=== PATIENT | female | born 1950 | race Hispanic/Latino ===

== ENCOUNTER 2021-06-22 17:32 | Emergency (ER) | payer OTHER ==
--- OUTSIDE RECORDS SUMMARY | 2021-06-22 17:37 | XMS REPORT | Continuity of Care Document ---
:1950 Author Organization Formerly [facility] t Address [address] [place] [address] Care Team Providers Name Role Phone [phone] Primary Care Physician Unavailable SYSTEM, NOT IN Attending Clinician Unavailable Patti GARRIDO Attending Clinician Unavailable Margarita BARRERAP, F Attending Clinician TORITO Attending Clinician Unavailable Nurse, Db Attending Clinician Unavailable Torito KNOX Attending Clinician José Miguel Haddad Attending Clinician Unavailable Saige Archer MD Attending Clinician Saige ARCHER Attending Clinician Unavailable Provider, Urgent Care Attending Clinician Unavailable Dayne Charlton Attending Clinician Unavailable José Miguel Haddad Admitting Clinician Unavailable Manan Maloney Admitting Clinician Unavailable Payers Payer Name Policy Type Policy Number Effective Date Expiration Date Manan glasgow MEDICARE PART A \\T\\ [id number] 2017 B 00:00:00 [facility] [id number] 2017 [employer] 00:00:00 Problems Condition Condition Condition Status Onset Resolution Last Treating Co mments Source Name Details Category Date Date Treatment Clinician Date Cyst of Cyst of Disease Active 2020-02 right right 0-25 [place] ovary ovary 00:00: n 00 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 2-03 An derso 00:00: n 00 Fatigue Fatigue Disease Active 2018-02 MD 0-07 [place] 00:00: n 00 SOB SOB Disease Active 2018- Univers (shortness (shortness 4-25 it y of of breath[place] breath[place] [facility] Atypical Atypical Disease Active Unive rs chest pain chest pain 4-25 it y of 00:00: [place] 00 Medical Branch Bradycardi Bradycardi Disease Active U nivers a, sinus a, sinus 4-25 ity of 00:00: [place] 00 Medical Branch Influenzal Influenzal Disease Active 2018- U nivers acute acute 4-24 ity of upper upper 00:00: [place] respirator respirator 00 Me dical y y Branch infection infection Acute Acute Disease Active 2018- exacerbati exacerbati 4-24 An derso on of on of 00:00: n chronic chronic 00 congestive congestive heart heart failure failure Essential Essential Disease Active hypertensi hypertensi 4-20 An derso on on 00:00: n 00 History of History of Disease Active M D aortic aortic 4-20 [facility] valve valve 00:00: n replacemen replacemen 00 t t Bradycardi Bradycardi Disease Active M D a a 4-10 Anderso 00:00: n 00 Well woman Well woman Disease Active 2017- U nivers exam with exam with 9-20 ity of routine routine 00:00: [place] gynecologi gynecologi 00 Me dical ashley exam ashley exam Branch History of History of Disease Active M D malignant malignant 9-20 Jesus rso neoplasm neoplasm 00:00: n of breast of breast 00 Morbid Morbid Disease Active obesity obesity 10-26 Anderso 00:00: n 00 Prediabete Prediabete Disease Active U nivers s s 10-28 ity of 00:00: [place] 00 Medical Branch Leukopenia Leukopenia Disease Active U nivers , , 10-28 ity of unspecifie unspecifie 00:[place] type d type 00 Medical Branch Total knee Total knee Disease Active U nivers replacemen replacemen 6-13 it y of t status t status 00:00: [place] 00 Medical Branch Knee pain, Knee pain, Disease Active U nivers left left 3-23 ity of 00:00: [place] 00 Medical Branch Pain of Pain of Disease Active knee knee 2-10 Anderso region region 00:00: n 00 Malignant Malignant Disease Active Uni vers neoplasm neoplasm 07 ity of of right of right 00:00: [place] female female 00 Medical breast breast Branch Insomnia Insomnia Disease Active Unive rs 02-12 ity of 00:00: [place] 00 Medical Branch Anxiety Anxiety Disease Active 1-07 Anderso 00:00: n 00 Allergies, Adverse Reactions, Alerts Allergy Allergy Status Severity Reaction(s) Onset Inactive Treating Comm ents Source Name Type Date Date Clinician iodine DA Active [facility] 10[facility] 00:[facility]: [address] [facility] iodine DA Active [facility] IV [facility] 10-27 [facility] [place] Iodine Propensi Active Swelling IV Iodine Uni vers ty to 10-26 onlySwell ity of adverse 00:00: ing [facility] [place] reaction 00 face and Medica l s to potential Branch drug throat IODINE DRUG Active High Rash Univers INGREDI 10-26 ity of 00:00: [place] 00 Medical Branch Family History Family Member Diagnosis Comments Start Date Stop Date Source Natural brother Kidney cancer And giovanny Natural brother Throat cancer And giovanny Maternal aunt Breast cancer David son Maternal aunt Stomach cancer MD Jesus heredia Social History Social Habit Start Date Stop Date Quantity Comments Source History YVONNEOR [facility] [place] Alcohol Frequency History [facility] [place] Alcohol Std Drinks History [facility] [place] Alcohol Binge Exposure to 2021-06-07 2021-06-17 Not sure University of SARS-CoV-2 00:00:00 07:54:00 [place] Medical (event) Branch Tobacco use and 2020-11-30 2020-11-30 Smokeless tobacco MD [place] exposure 00:00:00 00:00:00 non-user Alcohol intake 2020-11-30 2020-11-30 Ex-drinker MD Naresh hunter 00:00:00 00:00:00 (finding) History SDOH 2020-11-30 2020-11-30 ABOUT THREE MD [place] Alcohol Comment 00:00:00 00:00:00 DRINKS A YEAR MAYBE Sex [birth year] F MD [place] on 00:00:00 00:00:00 Smoking Status Start Date Stop Date Source Never smoked tobacco MD [place] Medications Ordered Filled Start Stop Current Ordering Indication Dosage Frequency Signature Comments Components Source Medication Medication Date Date Medication? Clinician (SIG) Name Name acetaminoph 2021- No 1000mg 1,000 mg, Univers en 06-22 Oral, ity of (TYLENOL) 01:00: 23:52 ONCE, 1 [place] tablet [place] :[place] dose, On Medical 1,000 mg Mon Branch 06/21/21 at 2000, Routine cyanocobala 2021- No [id number] 1000ug Univers min 06-17- ity of (VITAMIN 14:30: 13:18 [place] B12) 00 :00 Medical injection Branch 1,000 mcg cyanocobala 2021- No [id number] 1000ug 1,000 mcg, Univers min 06-17- Intramuscu ity of (VITAMIN 14:30: 13:18 [place]CE, [place] B12) 00 :00 1 dose, On Medical injection [place] Branch 1,000 mcg 06/17/21 at 0930, Routine ZOLPIDEM Yes [id number] TAKE 1 Univers mg tablet 5-09 TABLET AT ity o f 00:00: BEDTIME [place] 00 NEEDED FOR Medical INSOMNIA Branch ZOLPIDEM Yes [id number] TAKE 1 Univers mg tablet 5-09 TABLET AT ity o f 00:00: BEDTIME 00 NEEDED FOR Medical INSOMNIA Branch ZOLPIDEM Yes [id number] TAKE 1 [facility] mg tablet 5-09 TABLET AT ity o f 00:00: BEDTIME [place] 00 NEEDED FOR Medical INSOMNIA Branch sulfamethox 2021-0 Yes [id number] 1{tbl} Take 1 Univers azole-trime 4-13 tablet by ity of thoprim 00:00: mouth 2 [place] (BACTRIM 00 (two) Medical DS) 800-160 times Branch mg per daily. tablet furosemide 2021-0 Yes 40mg Take 1 Unive rs 40 mg 4-13 tablet by ity of tablet 00:00: mouth [place] 00 every Medical morning Branch and evening. metoprolol 2021-0 Yes [id number] TAKE 1 U nivers succinate 4-13 TABLET ity of XL 50 mg 24 00:00: EVERY DAY [place] hr tablet 00 Medical Branch sulfamethox 2021-0 Yes [id number] 1{tbl} Take 1 Univers azole-trime 4-13 tablet by ity of thoprim 00:00: mouth 2 [place] (BACTRIM 00 (two) Medical DS) 800-160 times Branch mg per daily. tablet furosemide 2021-0 Yes 40mg Take 1 Unive rs 40 mg 4-13 tablet by ity of tablet 00:00: mouth [place] 00 every Medical morning Branch and evening. metoprolol 2021-0 Yes [id number] TAKE 1 U nivers succinate 4-13 TABLET ity of XL 50 mg 24 00:00: EVERY DAY [place] hr tablet 00 Medical Branch sulfamethox 2021-0 Yes [id number] 1{tbl} Take 1 Univers azole-trime 4-13 tablet by ity of thoprim 00:00: mouth 2 [place] (BACTRIM 00 (two) Medical DS) 800-160 times Branch mg per daily. tablet furosemide 2021-0 Yes 40mg Take 1 Unive rs 40 mg 4-13 tablet by ity of tablet 00:00: mouth [place] 00 every Medical morning Branch and evening. metoprolol 2021-0 Yes [id number] TAKE 1 U nivers succinate 4-13 TABLET ity of XL 50 mg 24 00:00: EVERY DAY [place] hr tablet 00 Medical Branch sulfamethox 2021-0 Yes [id number] 1{tbl} Take 1 Univers azole-trime 4-13 tablet by ity of thoprim 00:00: mouth 2 [place] (BACTRIM 00 (two) Medical DS) 800-160 times Branch mg per daily. tablet furosemide 2021-0 Yes 40mg Take 1 Unive rs 40 mg 4-13 tablet by ity of tablet 00:00: mouth [place] 00 every Medical morning Branch and evening. metoprolol 2021-0 Yes [id number] TAKE 1 U nivers succinate 4-13 TABLET ity of XL 50 mg 24 00:00: EVERY DAY [place] hr tablet 00 Medical Branch sulfamethox 2021-0 Yes [id number] 1{tbl} Take 1 Univers azole-trime 4-13 tablet by ity of thoprim 00:00: mouth 2 [place] (BACTRIM 00 (two) Medical DS) 800-160 times Branch mg per daily. tablet furosemide 2021-0 Yes 40mg Take 1 Unive rs 40 mg 4-13 tablet by ity of tablet 00:00: mouth [place] 00 every Medical morning Branch and evening. metoprolol 2021-0 Yes [id number] TAKE 1 U nivers succinate 4-13 TABLET ity of XL 50 mg 24 00:00: EVERY DAY [place] hr tablet 00 Medical Branch HYDROXYZINE 0 Yes Take by Un adriana HCL ORAL 4-09 mouth. ity of 12:02: [place] 45 Medical Branch tamoxifen 2021-0 Yes Take by Univ ers citrate 4-09 mouth. ity of (TAMOXIFEN 12:02: [place] ORAL) 45 Medical Branch HYDROXYZINE 0 Yes Take by Un adriana HCL ORAL 4-09 mouth. ity of 12:02: [place] 45 Medical Branch tamoxifen 2021-0 Yes Take by Univ ers citrate 4-09 mouth. ity of (TAMOXIFEN 12:02: [place] ORAL) 45 Medical Branch HYDROXYZINE 2021-0 Yes Take by Un adriana HCL ORAL 4-09 mouth. ity of 12:02: [place] 45 Medical Branch tamoxifen 2021-0 Yes Take by Univ ers citrate 4-09 mouth. ity of (TAMOXIFEN 12:02: [place] ORAL) 45 Medical Branch HYDROXYZINE 2021-0 Yes Take by Un adriana HCL ORAL 4-09 mouth. ity of 12:02: [place] 45 Medical Branch tamoxifen 2021-0 Yes Take by Univ ers citrate 4-09 mouth. ity of (TAMOXIFEN 12:02: [place] ORAL) 45 Medical Branch HYDROXYZINE 2021-0 Yes Take by Un adriana HCL ORAL 4-09 mouth. ity of 12:02: [place] 45 Medical Branch tamoxifen 2021-0 Yes Take by Univ ers citrate 4-09 mouth. ity of (TAMOXIFEN 12:02: [place] ORAL) 45 Medical Branch SUCRALFATE 0 Yes Take by Uni vers ORAL 4-09 mouth. ity of 12:00: [place] [address] Medical Branch SUCRALFATE 0 Yes Take by Uni vers ORAL 4-09 mouth. ity of 12:00: [place] [address] Medical Branch SUCRALFATE 0 Yes Take by Uni vers ORAL 4-09 mouth. ity of 12:00: [place] [address] Medical Branch SUCRALFATE 0 Yes Take by Uni vers ORAL 4-09 mouth. ity of 12:00: [place] [address] Medical Branch SUCRALFATE 0 Yes Take by Uni vers ORAL 4-09 mouth. ity of 12:00: [place] [address] Medical Branch PROMETHAZIN 2021-0 Yes [id number] TAKE 1 Univers E 25 mg 4-07 TABLET ity of tablet 00:00: EVERY 4 [place] 00 HOURS Medical NEEDED FOR Branch NAUSEA AND VOMITING diazePAM 5 2021-0 Yes [id number] 5mg Take 1 Univers mg tablet 4-07 tablet by ity o f 00:00: mouth 2 [place] 00 (two) Medical times Branch daily as needed for Anxiety. PROMETHAZIN 0 Yes [id number] TAKE 1 Univers E 25 mg 4-07 TABLET ity of tablet 00:00: EVERY 4 [place] 00 HOURS Medical NEEDED FOR Branch NAUSEA AND VOMITING diazePAM 5 2021-0 Yes [id number] 5mg Take 1 Univers mg tablet 4-07 tablet by ity o f 00:00: mouth 2 [place] 00 (two) Medical times Branch daily as needed for Anxiety. PROMETHAZIN 0 Yes [id number] TAKE 1 Univers E 25 mg 4-07 TABLET ity of tablet 00:00: EVERY 4 [place] 00 HOURS Medical NEEDED FOR Branch NAUSEA AND VOMITING diazePAM 5 2021-0 Yes [id number] 5mg Take 1 Univers mg tablet 4-07 tablet by ity o f 00:00: mouth 2 [place] 00 (two) Medical times Branch daily as needed for Anxiety. PROMETHAZIN 2021-0 Yes [id number] TAKE 1 Univers E 25 mg 4-07 TABLET ity of tablet 00:00: EVERY 4 [place] 00 HOURS Medical NEEDED FOR Branch NAUSEA AND VOMITING diazePAM 5 2021-0 Yes [id number] 5mg Take 1 Univers mg tablet 4-07 tablet by ity o f 00:00: mouth 2 [place] 00 (two) Medical times Branch daily as needed for Anxiety. PROMETHAZIN Yes [id number] TAKE 1 Univers E 25 mg 4-07 TABLET ity of tablet 00:00: EVERY 4 [place] 00 HOURS Medical NEEDED FOR Branch NAUSEA AND VOMITING diazePAM 5 2021-0 Yes [id number] 5mg Take 1 Univers mg tablet 4-07 tablet by ity o f 00:00: mouth 2 [place] 00 (two) Medical times Branch daily as needed for Anxiety. amoxicillin Yes [id number] 1{tbl} Take 1 Univers -clavulanat 3-22 tablet by ity of e 875-125 00:00: mouth [place] mg per 00 every 12 Medical tablet (twelve) Branch hours. amoxicillin Yes [id number] 1{tbl} Take 1 Univers -clavulanat 3-22 tablet by ity of e 875-125 00:00: mouth [place] mg per 00 every 12 Medical tablet (twelve) Branch hours. amoxicillin Yes [id number] 1{tbl} Take 1 Univers -clavulanat 3-22 tablet by ity of e 875-125 00:00: mouth [place] mg per 00 every 12 Medical tablet (twelve) Branch hours. amoxicillin Yes [id number] 1{tbl} Take 1 Univers -clavulanat 3-22 tablet by ity of e 875-125 00:00: mouth [place] mg per 00 every 12 Medical tablet (twelve) Branch hours. amoxicillin Yes [id number] 1{tbl} Take 1 Univers -clavulanat 3-22 tablet by ity of e 875-125 00:00: mouth [place] mg per 00 every 12 Medical tablet (twelve) Branch hours. PROMETHAZIN Yes [id number] TAKE 5MLS Univers E 3-21 BY MOUTH ity of VC-CODEINE 00:00: FOUR TIMES [place] 6.25-5-10 00 A DAY Medica l mg/5 mL NEEDED FOR Branch syrup COUGH FOR UP TO 7 DAYS PROMETHAZIN 2021- Yes [id number] TAKE 5MLS Univers E 3-21 BY MOUTH ity of VC-CODEINE 00:00: FOUR TIMES [place] 6.25-5-10 00 A DAY Medica l mg/5 mL NEEDED FOR Branch syrup COUGH FOR UP TO 7 DAYS PROMETHAZIN 2021-0 Yes [id number] TAKE 5MLS Univers E 3-21 BY MOUTH ity of VC-CODEINE 00:00: FOUR TIMES [place] 6.25-5-10 00 A DAY Medica l mg/5 mL NEEDED FOR Branch syrup COUGH FOR UP TO 7 DAYS PROMETHAZIN 2021-0 Yes [id number] TAKE 5MLS Univers E 3-21 BY MOUTH ity of VC-CODEINE 00:00: FOUR TIMES [place] 6.25-5-10 00 A DAY Medica l mg/5 mL NEEDED FOR Branch syrup COUGH FOR UP TO 7 DAYS PROMETHAZIN 0 Yes [id number] TAKE 5MLS Univers E 3-21 BY MOUTH ity of VC-CODEINE 00:00: FOUR TIMES [place] 6.25-5-10 00 A DAY Medica l mg/5 mL NEEDED FOR Branch syrup COUGH FOR UP TO 7 DAYS azithromyci Yes [id number] 250mg Take 1 Univers n 250 mg 2-17 tablet by ity of tablet 00:00: mouth daily. Medical Take 500 Branch mg day 1, then 250 mg days 2 to 5. albuterol Yes [id number] 2{puff} Inhale 2 Univers 90 2-17 Puffs ity of mcg/actuati 00:00: every 6 [place] as on inhaler 00 (six) Medical hours as Branch needed for Wheezing or Shortness of Breath. azithromyci 0 Yes [id number] 250mg Take 1 Univers n 250 mg 2-17 tablet by ity of tablet 00:00: mouth daily. Medical Take 500 Branch mg day 1, then 250 mg days 2 to 5. albuterol 0 Yes [id number] 2{puff} Inhale 2 Univers 90 2-17 Puffs ity of mcg/actuati 00:00: every 6 [place] as on inhaler 00 (six) Medical hours as Branch needed for Wheezing or Shortness of Breath. azithromyci 0 Yes [id number] 250mg Take 1 Univers n 250 mg 2-17 tablet by ity of tablet 00:00: mouth [place] 00 daily. Medical Take 500 Branch mg day 1, then 250 mg days 2 to 5. albuterol Yes [id number] 2{puff} Inhale 2 Univers 90 2-17 Puffs ity of mcg/actuati 00:00: every 6 [place] as on inhaler 00 (six) Medical hours as Branch needed for Wheezing or Shortness of Breath. azithromyci 0 Yes [id number] 250mg Take 1 Univers n 250 mg 2-17 tablet by ity of tablet 00:00: mouth [place] 00 daily. Medical Take 500 Branch mg day 1, then 250 mg days 2 to 5. albuterol 0 Yes [id number] 2{puff} Inhale 2 Univers 90 2-17 Puffs ity of mcg/actuati 00:00: every 6 [place] as on inhaler 00 (six) Medical hours as Branch needed for Wheezing or Shortness of Breath. azithromyci Yes [id number] 250mg Take 1 Univers n 250 mg 2-17 tablet by ity of tablet 00:00: mouth [place] 00 daily. Medical Take 500 Branch mg day 1, then 250 mg days 2 to 5. albuterol 0 Yes [id number] 2{puff} Inhale 2 Univers 90 2-17 Puffs ity of mcg/actuati 00:00: every 6 [place] as on inhaler 00 (six) Medical hours as Branch needed for Wheezing or Shortness of Breath. ESOMEPRAZOL 0 Yes [id number] TAKE 1 Univers E 40 mg 2-14 CAPSULE ity of capsule 00:00: EVERY DAY [place] WITH Medical BREAKFAST Branch ESOMEPRAZOL 2021-0 Yes [id number] TAKE 1 Univers E 40 mg 2-14 CAPSULE ity of capsule 00:00: EVERY DAY WITH Medical BREAKFAST Branch ESOMEPRAZOL 2021-0 Yes [id number] TAKE 1 Univers E 40 mg 2-14 CAPSULE ity of capsule 00:00: EVERY DAY [place] WITH Medical BREAKFAST Branch ESOMEPRAZOL 0 Yes [id number] TAKE 1 Univers E 40 mg 2-14 CAPSULE ity of capsule 00:00: EVERY DAY [place] WITH Medical BREAKFAST Branch ESOMEPRAZOL Yes [id number] TAKE 1 Univers E 40 mg 2-14 CAPSULE ity of capsule 00:00: EVERY DAY [place] 00 WITH Medical BREAKFAST Branch predniSONE 2020-02 Yes [id number] 10mg Take 1 Univers 10 mg 2-27 tablet by ity of tablet 00:00: mouth 2 00 (two) Medical times Branch daily. predniSONE 2020-02 Yes [id number] 10mg Take 1 Univers 10 mg 2-27 tablet by ity of tablet 00:00: mouth 2 (two) Medical times Branch daily. predniSONE 2020-02 Yes [id number] 10mg Take 1 Univers 10 mg 2-27 tablet by ity of tablet 00:00: mouth 2 (two) Medical times Branch daily. predniSONE 2020-02 Yes [id number] 10mg Take 1 Univers 10 mg 2-27 tablet by ity of tablet 00:00: mouth 2 (two) Medical times Branch daily. predniSONE 2020-02 Yes [id number] 10mg Take 1 Univers 10 mg 2-27 tablet by ity of tablet 00:00: mouth 2 (two) Medical times Branch daily. zolpidem 10 2020-02 Yes [id number] TAKE 1 Univers mg tablet 2-16 TABLET AT ity o f 00:00: BEDTIME [place] 00 NEEDED FOR Medical INSOMNIA Branch zolpidem 10 2020-02 Yes [id number] TAKE 1 Univers mg tablet 2-16 TABLET AT ity o f 00:00: BEDTIME [place] 00 NEEDED FOR Medical INSOMNIA Branch zolpidem 10 2020-02- No [id number] TAKE 1 Univers mg tablet 2-16 05-09 TABLET AT ity of 00:00: 00:00 BEDTIME [place] 00 :00 NEEDED FOR Medical INSOMNIA Branch traMADoL 2020-02 Yes [id number] 50mg Take 1 Univers (ULTRAM) 50 2-13 tablet by ity of mg tablet 00:00: mouth [place] 00 every 6 Medical (six) Branch hours as needed for Pain (scale 7-10). Indication s: acute pain traMADoL 2020-02 Yes [id number] 50mg Take 1 Univers (ULTRAM) 50 2-13 tablet by ity of mg tablet 00:00: mouth [place] 00 every 6 Medical (six) Branch hours as needed for Pain (scale 7-10). Indication s: acute pain traMADoL 2020-02 Yes [id number] 50mg Take 1 Univers (ULTRAM) 50 2-13 tablet by ity of mg tablet 00:00: mouth [place] 00 every 6 Medical (six) Branch hours as needed for Pain (scale 7-10). Indication s: acute pain traMADoL 2020-02 Yes [id number] 50mg Take 1 Univers (ULTRAM) 50 2-13 tablet by ity of mg tablet 00:00: mouth [place] 00 every 6 Medical (six) Branch hours as needed for Pain (scale 7-10). Indication s: acute pain traMADoL 2020-02 Yes [id number] 50mg Take 1 Univers (ULTRAM) 50 2-13 tablet by ity of mg tablet 00:00: mouth [place] 00 every 6 Medical (six) Branch hours as needed for Pain (scale 7-10). Indication s: acute pain aspirin 81 2020-02 Yes 81mg Chew 81 MD mg chewable 0-25 mg. Anderso tablet 09:26: n 17 mv-min-foli 2020-02 Yes 1{tbl} Take 1 MD c-calcium 0-25 tablet by David so carb-K1 400 09:26: mouth. n mcg-500 mg 17 calcium-20 mcg tab metoprolol 2020-02 Yes 50mg Take 50 mg M D succinate 0-25 by mouth. David espinoza (TOPROL XL) 09:26: n 50 mg 24 hr 17 tablet fluticasone 2020-02 Yes 1{spray Inhale 1 MD propionate 0-25 } spray into And erso (FLONASE) 09:26: each n 50 17 nostril mcg/spray daily as nasal spray needed for allergies. cetirizine 2020-02 Yes 10mg Take 10 mg M D (ZyrTEC) 10 0-25 by mouth Jesus rso mg tablet 09:26: daily. n 17 flavoxATE 2020-02 Yes MD (URISPAS) 0-23 Anders[place] 100 mg 00:00: n tablet 00 sulfamethox 2020-02 Yes [id number] 1{tbl} Take 1 Univers azole-trime 0-20 tablet by ity of thoprim 00:00: mouth 2 [place] (BACTRIM 00 (two) Medical DS) 800-160 times Branch mg per daily. tablet flavoxATE 2020-02 Yes [id number] 100mg Take 1 U nivers 100 mg 0-20 tablet by ity of tablet 00:00: mouth 3 [place] 00 (three) Medical times Branch daily as needed for Pain (scale 4-6). sulfamethox 2020-02 Yes [id number] 1{tbl} Take 1 Univers azole-trime 0-20 tablet by ity of thoprim 00:00: mouth 2 [place] (BACTRIM 00 (two) Medical DS) 800-160 times Branch mg per daily. tablet flavoxATE 2020-02 Yes [id number] 100mg Take 1 U nivers 100 mg 0-20 tablet by ity of tablet 00:00: mouth 3 [place] 00 (three) Medical times Branch daily as needed for Pain (scale 4-6). sulfamethox 2020-02 Yes [id number] 1{tbl} Take 1 Univers azole-trime 0-20 tablet by ity of thoprim 00:00: mouth 2 [place] (BACTRIM 00 (two) Medical DS) 800-160 times Branch mg per daily. tablet flavoxATE 2020-02 Yes [id number] 100mg Take 1 U nivers 100 mg 0-20 tablet by ity of tablet 00:00: mouth 3 [place] 00 (three) Medical times Branch daily as needed for Pain (scale 4-6). sulfamethox 2020-02 Yes [id number] 1{tbl} Take 1 Univers azole-trime 0-20 tablet by ity of thoprim 00:00: mouth 2 [place] (BACTRIM 00 (two) Medical DS) 800-160 times Branch mg per daily. tablet flavoxATE 2020-02 Yes [id number] 100mg Take 1 U nivers 100 mg 0-20 tablet by ity of tablet 00:00: mouth 3 [place] 00 (three) Medical times Branch daily as needed for Pain (scale 4-6). sulfamethox 2020-02 Yes [id number] 1{tbl} Take 1 Univers azole-trime 0-20 tablet by ity of thoprim 00:00: mouth 2 [place] (BACTRIM 00 (two) Medical DS) 800-160 times Branch mg per daily. tablet flavoxATE 2020-02 Yes [id number] 100mg Take 1 U nivers 100 mg 0-20 tablet by ity of tablet 00:00: mouth 3 [place] 00 (three) Medical times Branch daily as needed for Pain (scale 4-6). sulfamethox 2020-02 Yes 1{tbl} Take 1 MD azole-trime 0-20 tablet by And erso thoprim 00:00: mouth. n (BACTRIM 00 DS) 800 mg-160 mg per tablet esomeprazol Yes TAKE 1 MD e (NexIUM) 9-03 CAPSULE Hom[place] o 40 MG 00:00: EVERY DAY n capsule 00 WITH BREAKFAST multivit-mi Yes 1{tbl} Take 1 Un adriana n-FA-Ca 8-11 tablet by ity of carb-vit K 15:35: mouth [place] (ONE-A-DAY 06 daily. Medical WOMEN'S Branch 50+) 400 mcg-500 mg calcium-20 mcg Tab multivit-mi Yes 1{tbl} Take 1 Un adriana n-FA-Ca 8-11 tablet by ity of carb-vit K 15:35: mouth [place] (ONE-A-DAY 06 daily. Medical WOMEN'S Branch 50+) 400 mcg-500 mg calcium-20 mcg Tab multivit-mi Yes 1{tbl} Take 1 Un adriana n-FA-Ca 8-11 tablet by ity of carb-vit K 15:35: mouth [place] (ONE-A-DAY 06 daily. Medical WOMEN'S Branch 50+) 400 mcg-500 mg calcium-20 mcg Tab multivit-mi Yes 1{tbl} Take 1 Un adriana n-FA-Ca 8-11 tablet by ity of carb-vit K 15:35: mouth [place] (ONE-A-DAY 06 daily. Medical WOMEN'S Branch 50+) 400 mcg-500 mg calcium-20 mcg Tab multivit-mi Yes 1{tbl} Take 1 Un adriana n-FA-Ca 8-11 tablet by ity of carb-vit K 15:35: mouth [place] (ONE-A-DAY 06 daily. Medical WOMEN'S Branch 50+) 400 mcg-500 mg calcium-20 mcg Tab diazePAM Yes 5mg Take 5 mg MD (VALIUM) 5 4-28 by mouth. Jesus rso mg tablet 00:00: n 00 zolpidem Yes TAKE 1 MD (AMBIEN) 10 4-28 TABLET AT And erso mg tablet 00:00: BEDTIME n 00 NEEDED FOR INSOMNIA promethazin Yes MD freeman-dextromet 4-17 Anderso horphan 00:00: n (PROMETHAZI 00 NE-DM) 6.25-15 mg/5 mL syrup aspirin 81 Yes 81mg Take 81 mg U nivers mg chewable 4-16 by mouth ity of tablet 14:49: daily. [address] aspirin 81 Yes 81mg Take 81 mg U nivers mg chewable 4-16 by mouth ity of tablet 14:49: daily. [address] aspirin 81 Yes 81mg Take 81 mg U nivers mg chewable 4-16 by mouth ity of tablet 14:49: daily. [address] aspirin 81 Yes 81mg Take 81 mg U nivers mg chewable 4-16 by mouth ity of tablet 14:49: daily. [address] aspirin 81 Yes 81mg Take 81 mg U nivers mg chewable 4-16 by mouth ity of tablet 14:49: daily. [address] ascorbic Yes Take by Unive rs acid 4-14 mouth. ity of (VITAMIN C 10:57: [place] ORAL) [facility] ascorbic Yes Take by Unive rs acid 4-14 mouth. ity of (VITAMIN C 10:57: [place] ORAL) [facility] ascorbic Yes Take by Unive rs acid 4-14 mouth. ity of (VITAMIN C 10:57: [place] ORAL) [facility] ascorbic Yes Take by Unive rs acid 4-14 mouth. ity of (VITAMIN C 10:57: [place] ORAL) [facility] ascorbic Yes Take by Unive rs acid 4-14 mouth. ity of (VITAMIN C 10:57: [place] ORAL) [facility] furosemide Yes MD SampsonLASIX) 20 3-22 [place] mg tablet 00:00: n 00 promethazin Yes TAKE 1 MD freeman 1-27 TABLET [place] (PHENERGAN) 00:00: EVERY 4 n 25 mg 00 HOURS tablet NEEDED FOR NAUSEA AND VOMITING fluticasone 2019-02 Yes [id number] 2{spray Use 2 Univers 27.5 1-02 } Sprays in ity of mcg/actuati 00:00: each [place] on nasal 00 nostril Medical spray daily. [place] fluticasone 2019-02 Yes [id number] 2{spray Use 2 Univers 27.5 1-02 } Sprays in ity of mcg/actuati 00:00: each [place] on nasal 00 nostril Medical spray daily. [place] fluticasone 2019-02 Yes [id number] 2{spray Use 2 Univers 27.5 1-02 } Sprays in ity of mcg/actuati 00:00: each [place] on nasal 00 nostril Medical spray daily. [place] fluticasone 2019-02 Yes [id number] 2{spray Use 2 Univers 27.5 1-02 } Sprays in ity of mcg/actuati 00:00: each [place] on nasal 00 nostril Medical spray daily. [place] fluticasone 2019-02 Yes [id number] 2{spray Use 2 Univers 27.5 1-02 } Sprays in ity of mcg/actuati 00:00: each [place] on nasal 00 nostril Medical spray daily. [place] ascorbic Yes MD acid, 02-06 Anderso vitamin C, 00:00: n (vitamin C) 00 1000 mg tablet clidinium-c Yes 1{capsu Take 1 U nivers hlordiazepo 5-30 le} capsule by it y of xide 5-2.5 00:00: mouth [place] mg capsule 00 daily. Medical Branch clidinium-c Yes 1{capsu Take 1 U nivers hlordiazepo 5-30 le} capsule by it y of xide 5-2.5 00:00: mouth [place] mg capsule 00 daily. [facility] Branch clidinium-c Yes 1{capsu Take 1 U nivers hlordiazepo 5-30 le} capsule by it y of xide 5-2.5 00:00: mouth [place] mg capsule 00 daily. [facility] clidinium-c Yes 1{capsu Take 1 U nivers hlordiazepo 5-30 le} capsule by it y of xide 5-2.5 00:00: mouth [place] mg capsule 00 daily. Medical Branch clidinium-c Yes 1{capsu Take 1 U nivers hlordiazepo 5-30 le} capsule by it y of xide 5-2.5 00:00: mouth [place] mg capsule 00 daily. [facility] Branch chlordiazeP 2019-0 Yes 1{capsu Take 1 M D OXIDE-clidi 5-30 le} capsule by An derso nium 00:00: mouth. n (LIBRAX) 5 00 mg-2.5 mg capsule sucralfate 2000-0 Yes (Carafate) 02-06 Anderso 100 mg/mL 00:00: n suspension 00 Immunizations Ordered Filled Immunization Date Status Comments [facility] e Immunization Name Name SARS-COV-2 COVID-19 2020-12-07 Completed Unive rsity of MODERNA VACCINE 00:00:00 [facility] SARS-COV-2 COVID-19 2020-12-07 Completed Unive rsity of MODERNA VACCINE 00:00:00 [facility] SARS-COV-2 COVID-19 2020-12-07 Completed Unive rsity of MODERNA VACCINE 00:00:00 [facility] SARS-COV-2 COVID-19 2020-12-07 Completed Unive rsity of MODERNA VACCINE 00:00:00 [facility] SARS-COV-2 COVID-19 2020-12-07 Completed Unive rsity of MODERNA VACCINE 00:00:00 [facility] Influenza High Dose 2020-11-06 Completed Unive rsity of 00:00:00 [facility] Influenza High Dose 2020-11-06 Completed Unive rsity of 00:00:00 [facility] Influenza High Dose 2020-11-06 Completed Unive rsity of 00:00:00 [facility] Influenza High Dose 2020-11-06 Completed Unive rsity of 00:00:00 [facility] Influenza High Dose 2020-11-06 Completed Unive rsity of 00:00:00 [facility] [place] [facility] SARS-COV-2 COVID-19 2020-03-31 Completed Unive rsity of MODERNA VACCINE 00:00:00 [facility] SARS-COV-2 COVID-19 2020-03-31 Completed Unive rsity of MODERNA VACCINE 00:00:00 [facility] SARS-COV-2 COVID-19 2020-03-31 Completed Unive rsity of MODERNA VACCINE 00:00:00 [facility] SARS-COV-2 COVID-19 2020-03-31 Completed Unive rsity of MODERNA VACCINE 00:00:00 [facility] SARS-COV-2 COVID-19 2020-03-31 Completed Unive rsity of MODERNA VACCINE 00:00:00 [facility] SARS-COV-2 COVID-19 2020-02-27 Completed Unive rsity of MODERNA VACCINE 00:00:00 [facility] Branch SARS-COV-2 COVID-19 2020-02-27 Completed Unive rsity of MODERNA VACCINE 00:00:00 [facility] SARS-COV-2 COVID-19 2020-02-27 Completed Unive rsity of MODERNA VACCINE 00:00:00 [facility] SARS-COV-2 COVID-19 2020-02-27 Completed Unive rsity of MODERNA VACCINE 00:00:00 [facility] SARS-COV-2 COVID-19 2020-02-27 Completed Unive rsity of MODERNA VACCINE 00:00:00 [facility] Influenza High Dose 2019-10-18 Completed Unive rsity of 00:00:00 [facility] [place] [facility] Influenza High Dose 2019-10-18 Completed Unive rsity of 00:00:00 [facility] [place] [facility] Influenza High Dose 2019-10-18 Completed Unive rsity of 00:00:00 [facility] [place] [facility] Influenza High Dose 2019-10-18 Completed Unive rsity of 00:00:00 [facility] [place] [facility] Influenza High Dose 2019-10-18 Completed Unive rsity of 00:00:00 [facility] [place] [facility] Pneumococcal 2018-10-22 Completed University o f Polysaccharide, 00:00:00 [facility] PPSV23 (PNEUMOVAX) Branch TDAP 2018-10-22 Completed University of 00:00:00 [facility] [place] [facility] Influenza High Dose 2018-10-22 Completed Unive rsity of 00:00:00 [facility] [place] [facility] Pneumococcal 2018-10-22 Completed University o f Polysaccharide, 00:00:00 [facility] PPSV23 (PNEUMOVAX) Branch TDAP 2018-10-22 Completed University of 00:00:00 [facility] [place] [facility] Influenza High Dose 2018-10-22 Completed Unive rsity of 00:00:00 [facility] [place] [facility] Pneumococcal 2018-10-22 Completed University o f Polysaccharide, 00:00:00 [place] [facility] PPSV23 (PNEUMOVAX) Branch TDAP 2018-10-22 Completed University of 00:00:00 [facility] [place] [facility] Influenza High Dose 2018-10-22 Completed Unive rsity of 00:00:00 [facility] [place] [facility] Pneumococcal 2018-10-22 Completed University o f Polysaccharide, 00:00:00 [place] [facility] PPSV23 (PNEUMOVAX) Branch TDAP 2018-10-22 Completed University of 00:00:00 [facility] [place] [facility] Influenza High Dose 2018-10-22 Completed Unive rsity of 00:00:00 [facility] [place] [facility] Pneumococcal 2018-10-22 Completed University o f Polysaccharide, 00:00:00 [place] [facility] PPSV23 (PNEUMOVAX) Branch TDAP 2018-10-22 Completed University of 00:00:00 [facility] [place] [facility] Influenza High Dose 2018-10-22 Completed Unive rsity of 00:00:00 [facility] [place] [facility] Zoster Vaccine 2018-07-15 Completed University of Recombinant 00:00:00 [facility] [place] [facility] Zoster Vaccine 2018-07-15 Completed University of Recombinant 00:00:00 [facility] [place] [facility] Zoster Vaccine 2018-07-15 Completed University of Recombinant 00:00:00 [facility] Zoster Vaccine 2018-07-15 Completed University of Recombinant 00:00:00 [facility] [place] [facility] Zoster Vaccine 2018-07-15 Completed University of Recombinant 00:00:00 [facility] [place] [facility] Zoster Vaccine 2018-03-14 Completed University of Recombinant 00:00:00 [facility] [place] [facility] Zoster Vaccine 2018-03-14 Completed University of Recombinant 00:00:00 [facility] Zoster Vaccine 2018-03-14 Completed University of Recombinant 00:00:00 [facility] Zoster Vaccine 2018-03-14 Completed University of Recombinant 00:00:00 [facility] Zoster Vaccine 2018-03-14 Completed University of Recombinant 00:00:00 [facility] [place] [facility] Zoster Vaccine 2018-02-06 Completed University of Recombinant 00:00:00 [facility] Zoster Vaccine 2018-02-06 Completed University of Recombinant 00:00:00 [facility] Zoster Vaccine 2018-02-06 Completed University of Recombinant 00:00:00 [facility] Zoster Vaccine 2018-02-06 Completed University of Recombinant 00:00:00 [facility] Zoster Vaccine 2018-02-06 Completed University of Recombinant 00:00:00 [facility] [place] [facility] Zoster Vaccine 2017-12-07 Completed University of Recombinant 00:00:00 [facility] Zoster Vaccine 2017-12-07 Completed University of Recombinant 00:00:00 [facility] Zoster Vaccine 2017-12-07 Completed University of Recombinant 00:00:00 [facility] Zoster Vaccine 2017-12-07 Completed University of Recombinant 00:00:00 [facility] [place] [facility] Zoster Vaccine 2017-12-07 Completed University of Recombinant 00:00:00 [facility] [place] [facility] Pneumococcal 13 2017-02-06 Completed Universit y of Conjugate, PCV13 00:00:00 [facility] dical (Prevnar 13) Branch Pneumococcal 13 2017-02-06 Completed Universit y of Conjugate, PCV13 00:00:00 [facility] [place] [facility] dical (Prevnar 13) Branch Pneumococcal 13 2017-02-06 Completed Universit y of Conjugate, PCV13 00:00:00 [facility] [place] [facility] dical (Prevnar 13) Branch Pneumococcal 13 2017-02-06 Completed Universit y of Conjugate, PCV13 00:00:00 [facility] [place] [facility] dical (Prevnar 13) Branch Pneumococcal 13 2017-02-06 Completed Universit y of Conjugate, PCV13 00:00:00 [facility] [place] [facility] dical (Prevnar 13) [place] Vital Signs Vital Name Observation Time Observation Value Comments Source Systolic blood 2021-06-21 23:24:00 138 mm[Hg] Univer sity of pressure [facility] [place] [facility] Diastolic blood 2021-06-21 23:24:00 83 mm[Hg] Unive rsity of pressure [facility] [place] [facility] Heart rate 2021-06-21 23:24:00 82 /min [facility] Body temperature 2021-06-21 23:24:[address] [facility] Respiratory rate 2021-06-21 23:24:00 18 /min [facility] Body height 2021-06-21 23:24:[address] [facility] Body weight 2021-06-21 23:24:[address] [facility] BMI 2021-06-21 23:24:00 48.47 kg/m2 [facility] Oxygen saturation in 2021-06-21 23:24:00 97 /min [facility] Arterial blood by [facility] Pulse oximetry Branch Body weight 2021-06-17 13:16:00 105.688 kg [facility] [place] [facility] BMI 2021-06-17 13:16:00 47.06 kg/m2 [facility] [place] [facility] Systolic blood 2021-06-03 12:49:00 102 mm[Hg] Univer sity of pressure [place] [facility] Diastolic blood 2021-06-03 12:49:00 67 mm[Hg] Unive rsity of pressure [facility] Heart rate 2021-06-03 12:49:00 67 /min [facility] [place] [facility] Body height 2021-06-03 12:49:00 149.9 cm [facility] [place] [facility] [place] Body weight 2021-06-03 12:49:00 106.096 kg [facility]i ty [facility] BMI 2021-06-03 12:49:00 47.24 kg/m2 Universi ty [facility] Oxygen saturation in 2021-06-03 12:49:00 98 /min [facility] Arterial blood by [facility] Pulse oximetry Branch Systolic blood 2020-11-30 14:11:41 126 mm[Hg] pressure Diastolic blood 2020-11-30 14:11:41 80 mm[Hg] MD Nancy sher pressure Heart rate 2020-11-30 14:11:41 86 /min MD Hernandez son Body height 2020-11-30 14:11:41 145.5 cm MD Hernandez son Body weight 2020-11-30 14:11:41 108.7 kg David son BMI 2020-11-30 14:11:41 51.35 kg/m2 MD Hernandez son Oxygen saturation in 2020-11-30 14:11:41 96 /min MD Soto Arterial blood by Pulse oximetry Body temperature 2020-11-30 14:10:02 36.78 Savita MD Meg arellano Respiratory rate 2020-11-30 14:10:02 20 /min MD Meg arellano Procedures Procedure Date / Time Performed Performing Clinician [facility] e NOTICE OF PRIVACY 2021-06-21 23:24:20 Doctor Unassigned, No Univ ersity [facility] PRACTICES Name Medical Branch CONSENT/REFUSAL FOR 2021-06-21 23:21:28 [facility]ass[facility], [facility] AND Name Medical Branch TREATMENT URINE CULTURE 2021-06-03 13:18:00 Srikanth Maloney [facility] POCT URINALYSIS 2021-06-03 13:10:00 Srikanth Maloney [facility] OSI US PELVIC 2020-11-13 22:16:00 Tavia Presley MD OSI CT ABDOMEN AND 2020-08-31 22:16:00 Tavia Presley MD on PELVIS Plan of Care Planned Activity Planned Date Details Comments Source Future Scheduled Test 1957-01-15 00:00:00 COVID-19 Vaccination MD Soto (1) [code = COVID-19 Vaccination (1)] Encounters Start End Encounter Admission Attending Care Care Encounter Source Date/Time Date/Time Type Type Clinicians Facility Department ID 2020-11-18 Outpatient SYSTEM, [facility] [id number] 12:08:45 PROVIDER Homar hunter 2021-06-21 2021-06-21 Emergency X TYREE, [facility] ERT [id number] Univers 18:27:00 22:01:[address] [facility] 2021-06-21 2021-06-21 Emergency [facility] [id number] Univers 18:27:00 22:01:00 [facility] [id number] [facility] [id number] [facility] [id number] [address] 2021-06-17 2021-06-17 Outpatient R TORITO [facility] [id number] Univers 08:00:00 08:16:34 SRIKANTH self [facility] 2021-06-17 2021-06-17 Nurse Nurse, Kirby Leija [facility] [id number] Univers 08:00:00 08:16:34 Visit Srikanth Maloney [facility] [id number] [facility] 4.2.7.2.68 Demetrius as DANIEL?BLEA [phone] [address] MEDICAL OFFICE BUILDING 2021-06-14 2021-06-14 Refill Torito [facility] [id number] Univers 00:00:00 00:00:00 [place] [id number] it y of [place] [id number] Demetrius as DANIEL?BLEA [id number] [address] OFFICE BUILDING 2021-06-03 2021-06-03 Office Torito [facility] [id number] Univers 07:45:00 08:15:38 Visit [facility] [id number] it y of [place] [id number] Demetrius as DANIEL?BLEA [id number] [address] OFFICE [facility] 2021-06-03 2021-06-03 [facility] [id number] Univers 07:45:00 08:15:38 SRIKANTH self [facility] 2021-03-05 2021-03-05 Outpatient EL Catie, [facility] [id number] [facility] 12:00:00 12:00:00 Manolo [id number] [facility] 2020-11-30 2020-11-30 Outpatient EL BORUTA, MDA MDA [id number] 08:50:27 11:22:32 PREM Rameshers o n 2020-11-30 2020-11-30 Outpatient EL MDA MDA [id number] 08:46:51 08:47:01 Homar o n 2020-11-24 2020-11-24 Outpatient EL MDA MDA [id number] MD 17:14:18 17:14:18 Homar o n 2020-11-24 2020-11-24 Outpatient EL MDA MDA [id number] MD 17:14:16 17:14:16 Homar o n 2020-11-24 2020-11-24 Outpatient EL MDA MDA [id number] MD 17:14:14 17:14:14 Homar o n 2020-11-24 2020-11-24 Outpatient EL MDA MDA [id number] MD 17:14:11 17:14:11 Homar o n 2020-11-24 2020-11-24 Outpatient EL MDA MDA [id number] MD 17:14:07 17:14:07 Homar o n 2020-11-24 2020-11-24 Outpatient EL MDA MDA [id number] MD 17:14:04 17:14:04 Homar merritt n 2020-02-15 2020-02-15 Urgent Provider, [facility] [id number] 14:36:09 15:52:50 Care [facility] [id number] [facility] [id number] Barrett [phone] nal [address] 2020-02-03 2020-02-03 Outpatient CARISSA HildaKelly castro [facility] [id number] [facility] 12:00:00 12:00:00 [id number] [facility] 2019-01-17 2019-01-17 Outpatient CARISSA GroveDarinKelly castro [facility] [id number] [facility] 12:00:00 12:00:00 [id number] [facility] Results Test Description Test Time Test Comments Results Result Comments Source POCT URINALYSIS W SPECIFIC GRAVITY 2021-06-03 13:13:00 Test Item Value Reference Range Interpretation Comme nts POCT U SP GRAV (test code = 3255) 1.005 mg/dl 1.005-1.025 POCT PH U (test code = 3254) 5 mg/dl 5-8 POCT U LEUK EST (test code = 3263) 1+ Negative - Negative POCT U NIT (test code = 3262) neg Negative - Negative POCT U PROT (test code = 3259) neg Negative - Negative POCT U GLU (test code = 3256) neg Negative - Negative POCT U KETONE (test code = 3258) neg Negative - Negative POCT U UROBILI (test code = 3260) neg 0.2-1 POCT U BILI (test code = 3261) neg Negative - Negative POCT U BLD (test code = 3257) Negative - Negative POCT U COLOR (test code = 3266) pale yellow POCT U APPEAR (test code = 3267) clear Lab Interpretation (test code = 65498-3) [facility] [id number] 13:13:00 Test Item Value Reference Range Interpretation Comments POCT U SP GRAV (test code = 1.005 mg/dl 1.005-1.025 3255) POCT PH U (test code = 3254) 5 mg/dl 5-8 POCT U LEUK EST (test code = 1+ Negative - Negative 3263) POCT U NIT (test code = 3262) neg Negative - Negative POCT U PROT (test code = neg Negative - Negative 3259) POCT U GLU (test code = 3256) neg Negative - Negative POCT U KETONE (test code = neg Negative - Negative 3258) POCT U UROBILI (test code = neg 0.2-1 3260) POCT U BILI (test code = neg Negative - Negative 3261) POCT U BLD (test code = 3257) Negative - Negative POCT U COLOR (test code = pale yellow 3266) POCT U APPEAR (test code = clear 3267) Lab Interpretation (test code Abnormal = 57385-7) [facility] BX NOT [id number] 14:06:00 RUN DATE: 01/15/19 [facility] PAGE 1 RUN TIME: 2006 Specimen Inquiry RUN USER: INTERFACE PATIENT: TERRANCE CERNA LOC: [place] U #: [id number] AGE/SX: 68/F ROOM: RE01/11/19MEGAN DR: Kelly Charlton MD : 54 BED: DIS: STATUS: DEP SDC TLOC: SPEC #: [id number] RECD: 01/11/19 STATUS: AIME LAWSON #: [id number] TACHO: 01/11/19- SUBM DR: Kelly Charlton MD ENTERED: 01/14/19 SP TYPE: SOFTMEXLBX OT DR: ORDERED: LEVEL V SURGICA CODES: C08786 - SUBCUTANEOUS TI PROCEDURES: LEVEL V SURGICA (Incomplete) TISSUES: SUBCUTANEOUS TISSUE, NOS - SCAPULA MASS CLINICAL HISTORY 68 year old, subcutaneous mass, right scapular (wpd) FINAL DIAGNOSIS Right subcutaneous scapular mass, excision: - intramuscular lipoma CPT code(s): 31262 [facility] 01/15/19 GROSS DESCRIPTION ANATOMIC SOURCE OF TISSUE (per Requisition): Right subcutaneous scapular mass (10.5 cm) The specimen is received in a formalin-filled container, labeled with the patient's name and designated "right subcutaneous scapular mass". The specimen consists an 8 x 4 x 2.5 cm well-circumscribed, yellow, fatty tissue with scant muscle on the surface measuring 2 x 0.3 cm. No discrete di scoloration is noted on the surface. Nurse Midwife sections are submitted in A1 and A2. diego/wpd103/17/18 @ 1650 Signed Liya Shukla MD 01/15/19 1406 - END OF REPORT CHEMISTRY 7 [id number] 12:20:00 Test Item Value Reference Range Interpretation Comments SODIUM (test code = NA) 144 mEq/L 135-145 N POTASSIUM (test code = K) 3.9 mEq/L 3.5-5.0 N CHLORIDE (test code = CL) 110 mEq/L 100-115 N CARBON DIOXIDE (test code = CO2) 28 mEq/L 22-31 N ANION GAP (test code = GAP) 9.60 10-20 L GLUCOSE (test code = GLU) 97 mg/dL 65-110 N BLOOD UREA NITROGEN (test code = 14 mg/dL 7-18 N BUN) GLOMERULAR FILTRATION RATE (test 100 ml/min >60 N code = GFR) CREATININE (test code = CREAT) 0.6 mg/dL 0.5-1.0 N CALCIUM (test code = CA) 8.4 mg/dL 8.4-10.2 N CBC W/AUTO [id number] 11:58:00 Test Item Value Reference Range Interpretation Comments WHITE BLOOD CELL (test code = WBC) 5.0 K/mm3 6.6-12.1 L RED BLOOD CELL (test code = RBC) 3.67 M/mm3 3.45-5.01 N HEMOGLOBIN (test code = HGB) 11.4 g/dL 10.7-13.9 N HEMATOCRIT (test code = HCT) 34.5 % 32.1-42.1 N MEAN CELL VOLUME (test code = MCV) 94 fL 84.1-94.8 N MEAN CELL HGB (test code = MCH) 31.1 pg 27-35 N MEAN CELL HGB CONCETRATION (test 33.0 gm/dL 32.2-34.1 N code = MCHC) RED CELL DISTRIBUTION WIDTH (test 12.5 % 12.4-16.5 N code = RDW) PLATELET COUNT (test code = PLT) 146 K/mm3 133-385 N IMMATURE PLATELET FRACTION (test 0.0 % 0.0-10.8 N code = IPF) MEAN PLATELET VOLUME (test code = 9.9 fl 9.1-12.7 N MPV) NEUTROPHIL % (test code = NT%) 67.9 % 56.5-79.4 N LYMPHOCYTE % (test code = LY%) 20.3 % 14.3-34.3 N MONOCYTE % (test code = MO%) 8.8 % 5.1-10.4 N EOSINOPHIL % (test code = EO%) 2.2 % 0.1-3.0 N BASOPHIL % (test code = BA%) 0.2 % 0.1-1.0 N NEUTROPHIL # (test code = NT#) 3.4 K/mm3 LYMPHOCYTE # (test code = LY#) 1.0 K/mm3 MONOCYTE # (test code = MO#) 0.4 K/mm3 EOSINOPHIL # (test code = EO#) 0.11 K/mm3 BASOPHIL # (test code = BA#) 0.0 K/mm3 RBC MORPHOLOGY REQUIRED (test code NORMAL NORMAL = RBCM) PLATELET MORPHOLOGY REQUIRED (test NORMAL NORMAL code = PLTMR) - XR CHEST [id number] 07:46:00 Patient Name: TERRANCE CERNA Unit No: [id number] EXAMS: CPT CODE: [id number] XR CHEST 1V [id number] Portable AP chest, 1 view Location Code: B2 CLINICAL HISTO RY: Post-ICD placement COMPARISON: 06/09/2018 COMMENT: Mild central congestive changes are stable. There is no consolidation or effusion. Mild cardio may be status post sternotomy and CABG is stable. Left chest pacer/AICD remains. There is no pneumothorax. There is no acute osseous abnormality. IMPRESSION: Stable mild central congestive changes with otherwise no acute radiographic abnormality at 0746 Reported and signed by: Kurtis Chahal M.D. CC: Bon Macedo MD; Dr. Latisha Charlton Technologist: Rodger Parson, RT(R) Transcrpt Date/Tm/Trnsp: 06/10/2018 (0746) [id number] Orig Print D/T: S: 06/10/2018 (0749) [facility] NAME: TERRANCE CERNA [id number] [address] PHYS: [place] [address] : 1950 AGE: 68 SEX: F LOC: Josephine A PHONE #: [phone] EXAM DATE: 06/10/2018 STATUS: ADM IN FAX #: [phone] RADIOLOGY NO: PAGE 1Signed ReportBASIC METABOLIC [id number] 06:59:00 Test Item Value Reference Range Interpretation Comments SODIUM (test code = 142 MMOL/L 137-145 N NA) POTASSIUM (test code = 4.8 MMOL/L 3.5-5.1 N K) CHLORIDE (test code = 109 MMOL/L 98-107 H CL) CARBON DIOXIDE (test 30 MMOL/L 22-30 N code = CO2) ANION GAP (test code = 8 MMOL/L 14-24 L GAP) GLUCOSE (test code = 102 MG/DL 74-106 GLU) BLOOD UREA NITROGEN 11 MG/DL 7-17 N (test code = BUN) GLOMERULAR FILTRATION > 60 Report ing units: RATE (test code = GFR) ml/mi n/1.73 m2 (Modified MDRD Formula)Referen ce Range: > or = 6 0 ml/min/1.73 m2 CREATININE (test code 0.70 MG/DL 0.52-1.04 N = CREAT) CALCIUM (test code = 8.0 MG/DL 8.4-10.2 L CA) CBC W/AUTO [id number] 06:50:00 Test Item Value Reference Range Interpretation Comments WHITE BLOOD CELL (test code = 5.3 K/MM3 3.8-9.8 N WBC) RED BLOOD CELL (test code = 3.35 M/MM3 3.58-4.97 L RBC) HEMOGLOBIN (test code = HGB) 10.3 G/DL 11.2-14.9 L HEMATOCRIT (test code = HCT) 31.6 % 33.2-43.5 L MEAN CELL VOLUME (test code = 94 fL 80.7-99.1 N MCV) MEAN CELL HGB (test code = MCH) 30.7 pg 27.0-34.1 N MEAN CELL HGB CONCETRATION 32.6 % 32.2-35.7 N (test code = MCHC) RED CELL DISTRIBUTION WIDTH 13.7 % 12.1-15.2 N (test code = RDW) PLATELET COUNT (test code = 104 K/MM3 129-368 L PLT) MEAN PLATELET VOLUME (test code 10.4 fl 7.4-10.4 N = MPV) NEUTROPHIL % (test code = NT%) 69.3 % 43-75 N IMMATURE GRANULOCYTE % (test 0.9 % 0.0-2.0 N code = IG%) LYMPHOCYTE % (test code = LY%) 18.9 % 14-44 N MONOCYTE % (test code = MO%) 9.6 % 4-13 N EOSINOPHIL % (test code = EO%) 1.3 % 0-6 N BASOPHIL % (test code = BA%) 0 % 0-2 N NUCLEATED RBC % (test code = 0.0 % 0-1.0 N NRBC%) NEUTROPHIL # (test code = NT#) 3.66 K/mm3 2.0-7.6 N IMMATURE GRANULOCYTE # (test 0.05 x10 3/uL 0-0.03 H code = IG#) LYMPHOCYTE # (test code = LY#) 1.00 K/mm3 1.0-3.8 N MONOCYTE # (test code = MO#) 0.51 K/mm3 0.1-0.8 N EOSINOPHIL # (test code = EO#) 0.07 K/mm3 0.0-0.2 N BASOPHIL # (test code = BA#) 0 K/mm3 0.0-0.2 N NUCLEATED RBC # (test code = 0.00 K/mm3 0.0-0.1 N NRBC#) - XR CHEST [id number] 14:59:00 Patient Name: TERRANCE CERNA Unit No: [id number] EXAMS: CPT CODE: [id number] XR CHEST 1V [id number] Location Code: B2 CHEST AP HISTORY: Status post ICD COMPARISON: CT chest dated 10/28/2014 FINDINGS: Dual-lead pacemaker with leads in the right atrium and right ventricle. The device superimposes the left upper chest. Mild central vascular congestion. Cardiomediastinal silhouette is otherwise stable. Osseous structures are stable and as well. IMPRESSION: 1 Dual-lead pacemaker. 2. Mild central vascular congestion. at 1459 Reported and signed by: Radha Khan M.D. CC: Bon Macedo MD; Dr. Latisha Charlton Technologist: Rodger Parson, RT(R) Transcrpt Date/Tm/Trnsp: 06/09/2018 (3918) t.SDR.EFM Orig Print D/T:S: 06/09/2018 (0880) [facility] NAME: TERRANCE CERNA [id number] PHYS: Bon Zuniga MD [place], [place] [id number] : 1950 AGE: 68 SEX: F LOC: [id number] PHONE #: [phone] EXAM DATE: 06/09/2018 STATUS: ADM IN FAX #: [phone] RADIOLOGY NO: PAGE 1 Signed ReportLIPID PROFILE (CORONARY RISK) 2018-06-09 08:44:00 Test Item Value Reference Range Interpretation Comments TRIGLYCERIDES (test 95 MG/DL TRIGLYCE RIDES code = TRIG) REFERENCE RANGE:Normal: < 150 mg/dLBorderline High: 150-199 mg/dLHi gh: 200-499 mg/dLVe ry High: >=500 mg/ dL CHOLESTEROL (test code 135 MG/DL <200 = CHOL) HDL CHOLESTEROL (test 44 MG/DL 40-59 N code = HDL) LIPOPROTEIN LDL (test 82 MG/DL 0-99 N code = LDL) OPTIMAL........ .<100 mg/dLNEAR OPTIMAL/ABOVE OPTIMAL........ .100-12 9 mg/dL BORDERLINE HIGH.........13 0-159 mg/dL HIGH.........16 0-189 mg/dL VERY HIGH...... ...>/= 190 mg/dL LIPID PROFILE (CORONARY RISK)2018-06-09 08:33:00 Test Item Value Reference Range Interpretation Comments TRIGLYCERIDES (test 95 MG/DL TRIGLYCE RIDES code = TRIG) REFERENCE RANGE:Normal: < 150 mg/dLBorderline High: 150-199 mg/dLHi gh: 200-499 mg/dLVe ry High: >=500 mg/ dL CHOLESTEROL (test code 135 MG/DL <200 = CHOL) HDL CHOLESTEROL (test 44 MG/DL 40-59 N code = HDL) LIPOPROTEIN LDL (test MG/DL 0-99 code = LDL) BASIC METABOLIC [id number] 08:24:00 Test Item Value Reference Range Interpretation Comments SODIUM (test code = 142 MMOL/L 137-145 N NA) POTASSIUM (test code = 3.9 MMOL/L 3.5-5.1 N K) CHLORIDE (test code = 109 MMOL/L 98-107 H CL) CARBON DIOXIDE (test 26 MMOL/L 22-30 N code = CO2) ANION GAP (test code = 11 MMOL/L 14-24 L GAP) GLUCOSE (test code = 147 MG/DL 74-106 H GLU) BLOOD UREA NITROGEN 11 MG/DL 7-17 N (test code = BUN) GLOMERULAR FILTRATION > 60 Report ing units: RATE (test code = GFR) ml/mi n/1.73 m2 (Modified MDRD Formula)Referen ce Range: > or = 6 0 ml/min/1.73 m2 CREATININE (test code 0.60 MG/DL 0.52-1.04 N = CREAT) CALCIUM (test code = 8.5 MG/DL 8.4-10.2 N CA) [id number] 08:24:00 Test Item Value Reference Range Interpretation Comments LIPASE (test code = LIP) 30 UNITS/L 23-300 N [id number] 08:24:00 Test Item Value Reference Range Interpretation Comments MAGNESIUM (test code = MAG) 1.6 MG/DL 1.6-2.3 N PROTHROMBIN [id number] 07:45:00 Test Item Value Reference Range Interpretation Comments PROTHROMBIN TIME 11.0 SECONDS 9.6-11.6 N PATIENT (test code = PTP) INTERNATIONAL NORMAL 1.0 0.8-1.1 N The INR is to be RATIO (test code = used only for INR) monitoring oral anticoagulantth erap y. INDICATION I NR VALUE ---- ---- ---- -------1. Prophylaxis, de ep venous thrombos is, including hig h risk surgery. 2.0 - 3.0 2. Prophylaxis, de ep venous thrombos is, hip surgery, treatment for d eep venous thrombosis or pulmonary prevention of systemic emboli sm in patients wit h valvular heart disease, atrial fibrillation, tissue heart va lve, or acute myocar dial infarction. 2.0 - 3 .0 3. Mechanical prosthesis hear t valves, recurrent syste bambi embolism. 3.0 - 4.5 PTT [id number] 07:45:00 Test Item Value Reference Range Interpretation Comments PTT ACTIVATED (test code = APTT) 26.6 SECONDS 22.0-33.0 N CBC W/AUTO [id number] 07:29:00 Test Item Value Reference Range Interpretation Comments WHITE BLOOD CELL (test code = 10.2 K/MM3 3.8-9.8 H WBC) RED BLOOD CELL (test code = 3.80 M/MM3 3.58-4.97 N RBC) HEMOGLOBIN (test code = HGB) 11.6 G/DL 11.2-14.9 N HEMATOCRIT (test code = HCT) 36.1 % 33.2-43.5 N MEAN CELL VOLUME (test code = 95 fL 80.7-99.1 N MCV) MEAN CELL HGB (test code = MCH) 30.5 pg 27.0-34.1 N MEAN CELL HGB CONCETRATION 32.1 % 32.2-35.7 L (test code = MCHC) RED CELL DISTRIBUTION WIDTH 13.7 % 12.1-15.2 N (test code = RDW) PLATELET COUNT (test code = 113 K/MM3 129-368 L PLT) MEAN PLATELET VOLUME (test code 10.0 fl 7.4-10.4 N = MPV) NEUTROPHIL % (test code = NT%) 85.0 % 43-75 H IMMATURE GRANULOCYTE % (test 0.6 % 0.0-2.0 N code = IG%) LYMPHOCYTE % (test code = LY%) 7.0 % 14-44 L MONOCYTE % (test code = MO%) 7.1 % 4-13 N EOSINOPHIL % (test code = EO%) 0.1 % 0-6 N BASOPHIL % (test code = BA%) 0.2 % 0-2 N NUCLEATED RBC % (test code = 0.0 % 0-1.0 N NRBC%) NEUTROPHIL # (test code = NT#) 8.68 K/mm3 2.0-7.6 H IMMATURE GRANULOCYTE # (test 0.06 x10 3/uL 0-0.03 H code = IG#) LYMPHOCYTE # (test code = LY#) 0.71 K/mm3 1.0-3.8 L MONOCYTE # (test code = MO#) 0.72 K/mm3 0.1-0.8 N EOSINOPHIL # (test code = EO#) 0.01 K/mm3 0.0-0.2 N BASOPHIL # (test code = BA#) 0.02 K/mm3 0.0-0.2 N NUCLEATED RBC # (test code = 0.00 K/mm3 0.0-0.1 N NRBC#)
--- NOTE | 2021-06-22 19:39 | RAD REPORT ---
EXAM DESCRIPTION: RAD - Shoulder Right 2 View - 06/22/2021 7:28 pm CLINICAL HISTORY: PAIN COMPARISON: No comparisons FINDINGS: Moderate degenerative changes are present involving the right shoulder. No acute fracture or dislocation evident.
--- NOTE | 2021-06-22 20:27 | ER ---
Nurse's Notes [facility] Name: Kathleen Rausch Age: 71 yrs Sex: Female : 1950 Arrival Date: 06/22/2021 Time: 17:33 Bed DIS4 Private MD: Jerry Maloney S Diagnosis: Pain in right shoulder Presentation: 06/22 18:37 Chief complaint: Patient states: Ran into the laundry door Monday and hurt right ww shoulder. Coronavirus screen: Vaccine status: Patient reports receiving the 2nd dose of the covid vaccine. Client denies travel out of the [place] in the last 14 days. Ebola Screen: Patient denies travel to an Ebola-affected area in the 21 days before illness onset. Initial Sepsis Screen: Does the patient meet any 2 criteria? No. Patient's initial sepsis screen is negative. Does the patient have a suspected source of infection? No. Patient's initial sepsis screen is negative. Risk Assessment: Do you want to hurt yourself or someone else? Patient reports no desire to harm self or others. Onset of symptoms is unknown. 18:37 Method Of Arrival: Ambulatory ww 18:37 Acuity: OZIEL 4 ww Historical: - Allergies: 18:38 No Known Allergies; ww - Home Meds: 18:38 Metoprolol Tartrate Oral [Active]; ww - PMHx: 18:38 Coronary atherosclerosis; ww - PSHx: 18:38 Coronary artery bypass graft; ww - Immunization history:: Adult Immunizations up to date. - Social history:: Smoking status: Patient denies any tobacco usage or history of. Screenin:10 Abuse screen: Denies threats or abuse. Nutritional screening: No deficits noted. bb Tuberculosis screening: No symptoms or risk factors identified. Fall Risk None identified. Assessment: 21:10 General: Appears in no apparent distress. Behavior is calm, cooperative. Pain: bb Complains of pain in right shoulder. Neuro: Level of Consciousness is awake, alert, obeys commands, Oriented to person, place, time, situation. Cardiovascular: No deficits noted. Respiratory: Respiratory effort is even, unlabored. GI: No signs and/or symptoms were reported involving the gastrointestinal system. Derm: Skin is pink, warm \T\ dry. Musculoskeletal: Circulation, motion, and sensation intact. Reports pain in right shoulder. 21:10 Reassessment: pt seen by this RN at discharge pt verbalized understanding of and agrees bb to plan of care discharge instructions given pt ambulated with steady gait to exit. Vital Signs: 18:37 BP 154 / 79; Pulse 97; Resp 18; Temp 97.3; Pulse Ox 96% ; Weight 108.86 kg; Height 4 ww ft. 11 in. (149.86 cm); 21:04 BP 149 / 69; Pulse 84; Resp 18; Temp 98.9(TE); Pulse Ox 99% ; mw2 18:37 Body Mass Index 48.47 (108.86 kg, 149.86 cm) ww ED Course: 17:33 Patient arrived in ED. as 17:36 Jerry Maloney MD is Private Physician. as 18:38 Triage completed. ww 18:38 Arm band placed on. ww 19:30 Shoulder Right (2 View) XRAY In Process Unspecified. EDMS 19:35 Malik Lucia PA is PHCP. m 19:35 Laron Walls MD is Attending Physician. jmm 20:26 Shubham Steel MD is Referral Physician. jmm 21:10 Nicolette Serrano, RN is Primary Nurse. bb 21:10 Patient has correct armband on for positive identification. bb 21:10 No provider procedures requiring assistance completed. Patient did not have IV access bb during this emergency room visit. Administered Medications: No medications were administered Outcome: 20:27 Discharge ordered by MD. jmm 21:12 Discharged to home ambulatory. bb 21:12 Condition: stable 21:12 Discharge instructions given to patient, Instructed on discharge instructions, follow up and referral plans. no driving heavy equipment, medication usage, Demonstrated understanding of instructions, follow-up care, medications, Prescriptions given X 1. 21:13 Patient left the ED. bb Signatures: Dispatcher [employer] EDMS Malik Lucia PA PA jmm Martinez, Amelia as Nicolette Serrano, RN RN bb Sakina Hurt 2 Makayla Jasso RN RN ww
--- NOTE | 2021-06-22 20:27 | EDPHYS ---
Physician Documentation [facility] Name: Kathleen Rausch Age: 71 yrs Sex: Female : 1950 Arrival Date: 06/22/2021 Time: 17:33 Bed DIS4 Private MD: Jerry Maloney S ED Physician Laron Walls HPI: 06/22 18:40 This 71 yrs old Female presents to ER via Ambulatory with complaints of jmm Shoulder Injury. 18:40 The patient or guardian complains of an injury, pain, that is acute. Onset: The jmm symptoms/episode began/occurred acutely, 4 day(s) ago. Modifying factors: the symptoms are alleviated by nothing. The symptoms are aggravated by movement. Associated signs and symptoms: Pertinent positives:. This is a 71-year-old female with history of atherosclerosis the presents emerged part with complaints of right shoulder pain which occurred after a fall which occurred this past Monday. Patient complains on pain on movement of the shoulder. Denies other known injury. Denies head injury.. Historical: - Allergies: 18:38 No Known Allergies; ww - Home Meds: 18:38 Metoprolol Tartrate Oral [Active]; ww - PMHx: 18:38 Coronary atherosclerosis; ww - PSHx: 18:38 Coronary artery bypass graft; ww - Immunization history:: Adult Immunizations up to date. - Social history:: Smoking status: Patient denies any tobacco usage or history of. ROS: 18:40 Constitutional: Negative for fever, chills, and weight loss, Cardiovascular: Negative jmm for chest pain, palpitations, and edema, Respiratory: Negative for shortness of breath, cough, wheezing, and pleuritic chest pain. 18:40 MS/extremity: Positive for injury or acute deformity. 18:40 All other systems are negative. Exam: 18:40 Constitutional: This is a well developed, well nourished patient who is awake, alert, jmm and in no acute distress. Head/Face: atraumatic. Eyes: EOMI, no conjunctival erythema appreciated ENT: Moist Mucus Membranes Neck: Trachea midline, Supple Chest/axilla: Normal chest wall appearance and motion. Cardiovascular: Regular rate and rhythm. No edema appreciated Respiratory: Normal respirations, no respiratory distress appreciated Abdomen/GI: Non distended, soft Back: Normal ROM Skin: General appearance color normal 18:40 Musculoskeletal/extremity: Right anterior shoulder pain on palpation, pain is appreciated on abduction, full bird raiser strength, full radial pulse, neurovascular intact. 18:40 Skin: Appearance: Color: normal in color. 18:40 Neuro: Orientation: is normal, Mentation: is normal, Memory: is normal. 18:40 Psych: Behavior/mood is pleasant, cooperative. Vital Signs: 18:37 BP 154 / 79; Pulse 97; Resp 18; Temp 97.3; Pulse Ox 96% ; Weight 108.86 kg; Height 4 ww ft. 11 in. (149.86 cm); 21:04 BP 149 / 69; Pulse 84; Resp 18; Temp 98.9(TE); Pulse Ox 99% ; mw2 18:37 Body Mass Index 48.47 (108.86 kg, 149.86 cm) ww MDM: 19:37 Patient medically screened. [facility] 20:26 Data reviewed: vital signs, nurses notes. Counseling: I had a detailed discussion with dayanara the patient and/or guardian regarding: the historical points, exam findings, and any diagnostic results supporting the discharge/admit diagnosis, radiology results, the need for outpatient follow up, to return to the emergency department if symptoms worsen or persist or if there are any questions or concerns that arise at home. 06/22 18:39 Order name: Shoulder Right (2 View) XRAY; Complete Time: 19:42 ww Administered Medications: No medications were administered Disposition: 06/23 08:18 Co-signature as Attending Physician, Laron Walls MD. [email or web address] Disposition Summary: 06/22/21 20:27 Discharge Ordered Location: Home [facility] Condition: Stable [facility] Diagnosis - Pain in right shoulder [facility] Followup: [facility] - With: Shubham Steel MD - When: 2 - 3 days - Reason: Recheck today's complaints, Continuance of care, Re-evaluation by your physician Discharge Instructions: - Discharge Summary Sheet [facility] - Shoulder Pain [facility] Forms: - Medication Reconciliation Form [facility] - Thank You Letter keyla - Antibiotic Education [facility] - Prescription Opioid Use [facility] Prescriptions: - orphenadrine citrate 100 mg Oral Tablet Sustained Release - take 1 tablet by ORAL route 2 times per day As needed; 20 tablet; Refills: 0, [facility] Product Selection Permitted Signatures: Malik Arita PA PA jmm Holmes, Maurice, MD MD [email or web address] Makayla Jasso RN RN ww
[2021-06-22 21:20] VITALS: BP 149/69; TEMP 98.9; O2SAT 99
== END 2021-06-22 21:13 | disposition home or self-care (01) ==
LOC: ER 17:32
DX: M25.511 Pain in right shoulder (principal); W19.XXXA Unspecified fall, initial encounter; Z95.1 Presence of aortocoronary bypass graft
CPT/HCPCS: 99283